=== PATIENT | male | born 1970 | race Two or more races ===

== ENCOUNTER → 2022-06-09 11:00 | Outpatient (BNVA) | payer OTHER, SELFPAY | PROVIDERS: Visit Provider Physician Assistant Medical | DX: S61.042A Puncture wound with foreign body of left thumb without damage to nail, initial encounter (principal); L03.012 Cellulitis of left finger; W45.8XXA Other foreign body or object entering through skin, initial encounter; W22.8XXA Striking against or struck by other objects, initial encounter | CPT/HCPCS: 10060; 73130; 99203 ==

== ENCOUNTER → 2022-06-11 13:06 | Outpatient (BNVA) | payer OTHER, SELFPAY | PROVIDERS: Visit Provider Physician Assistant | DX: L03.012 Cellulitis of left finger (principal) | CPT/HCPCS: 99213 ==

== ENCOUNTER → 2022-06-16 10:33 | Outpatient (BNVA) | payer OTHER, SELFPAY | PROVIDERS: Visit Provider Physician Assistant Medical | DX: L03.012 Cellulitis of left finger (principal) | CPT/HCPCS: 99213 ==

== ENCOUNTER → 2022-11-25 10:02 | Outpatient (BNVA) | payer OTHER, SELFPAY | PROVIDERS: Visit Provider Physician Assistant Medical | DX: S61.214A Laceration without foreign body of right ring finger without damage to nail, initial encounter (principal); W26.9XXA Contact with unspecified sharp object(s), initial encounter | CPT/HCPCS: 99203 ==

== ENCOUNTER 2022-11-27 10:43 | Outpatient (AMB) | payer OTHER, SELFPAY ==
--- NOTE | 2022-11-27 10:51 | A.OFFVIS_ITS ---
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 Patient reports while working with a machine he had a laceration to his 4th finger. He was seen at [facility] where xrays were taken and sutures were applied. Followed up at [facility] who referred patient to orthopedic. He has concerns not being able to fully straiten his finger. He has a pinching sensation in his finger and feels a pressure at the tip of his finger. He has been out of work since injury. 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 He was seen at [facility] where x-rays were performed and sutures were applied. He was also follow-up at [facility] who referred him to our office. He states he has a pinching sensation in his finger and pressure at the tip of his index finger. He also reports he is unable to fully extend his finger. 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 Review of Systems Const All systems reviewed & are unremarkable except as noted in HPI and below Physical Exam Vital Signs: BMI result Body Mass Index 25.0 Const General: cooperative, healthy appearing, comfortable, no acute distress, well developed and alert Orientation/consciousness: patient oriented x3 HEENT Head: Yes normal to inspection, Yes normocephalic and Yes atraumatic Eyes General: appearance normal, both eyes and all related structures Resp Effort & Inspection: normal respiratory effort and able to speak in complete sentences Cardio Rate: regular rate Peripheral pulses: Peripheral pulses 2+ throughout GI Palpation (GI): Soft to palpation Skin Lesions: no lesions Rashes: no rashes Neuro General: patient oriented x3 Extrem Other: Right ring finger: Laceration over the DIP joint with extension lag. He is able to flex at MCP, PIP and DIP joint. Sensation is intact. Assessment & Plan Assessment & Plan (1) Rupture of extensor tendon of finger: Code(s): S56.419A - Strain of extensor muscle, fascia and tendon of finger, unspecified finger at forearm level, initial encounter Plan We discussed options today with him which include surgical vs non-surgical intervention. He is concerned about being out of work as he is the sole provider for his family. I did explain to him that surgical intervention would include exploration with possible extensor tendon repair. This would also require splinting/immobilization for approximately 6 weeks to allow for healing. This would mean he have to be out of work for some time. Non-surgical intervention would also potentially require splinting for at least 6 weeks for him to have some function of the distal phalanx. I did explain to him that with both options, there is risk for stiffness and failure of reattachment of the tendon. He would like to think this through a bit more. He will return on Wednesday to see Dr. Araiza to discuss this further. He was placed in a Stax splint today which allow hyperextension of the DIP joint of the index finger and allows him to flex at the PIP and MCP. He will see back as planned and he will remain out of work until follow-up. Patient Instructions: Scribed for Carol Rojas PA-C, by Vince Dodd medical claims assistant, on 11/27/2022 at 10:45 AM EST. I, Carol Rojas PA-C, have personally reviewed and agree with the information entered by the scribe. Coding Level of Care Code New Pt Level 3 (46232) Diagnoses Rupture of extensor tendon of finger S56.419A
[2022-11-27 11:00] VITALS: BMI 25.0
== END 2022-11-27 11:29 | disposition home or self-care (01) ==
PROVIDERS: Visit Provider Physician Assistant
DX: S61.215A Laceration without foreign body of left ring finger without damage to nail, initial encounter (principal); S56.419A Strain of extensor muscle, fascia and tendon of finger, unspecified finger at forearm level, initial encounter
CPT/HCPCS: 99203

== ENCOUNTER → 2022-11-27 10:43 | Outpatient (BNVA) | payer OTHER, SELFPAY | PROVIDERS: Visit Provider Physician Assistant | DX: S61.214A Laceration without foreign body of right ring finger without damage to nail, initial encounter (principal); S56.415A Strain of extensor muscle, fascia and tendon of right ring finger at forearm level, initial encounter; W31.9XXA Contact with unspecified machinery, initial encounter; Y93.89 Activity, other specified; Y92.69 Other specified industrial and construction area as the place of occurrence of the external cause; Y99.0 Civilian activity done for income or pay | CPT/HCPCS: 99202 ==

== ENCOUNTER 2022-12-01 10:33 | Outpatient (AMB) | payer OTHER, SELFPAY ==
[2022-12-01 11:03] VITALS: BMI 25.0
--- NOTE | 2022-12-01 11:03 | MHC.OFFVIS ---
Intake Vital Signs 12/01/22 11:03 Height 5 ft 6 in Weight 155 lb BMI 25.0 Intake Visit Reasons: eval extensory tendon rupture Rt index finger Intake Note: Jamar 52-year-old right hand dominant male who presents to the office today for further evaluation of laceration of 4th finger s/p injuring his hand while working with a machine, 10/31/22. He was seen at [facility] where x-rays were performed and sutures were applied. He was also follow-up at [facility] who referred him to our office. He states he has a pinching sensation in his finger and pressure at the tip of his index finger. He also reports he is unable to fully extend his finger. Last seen on 11/27/22 with Brigitte Rojas who placed patient in a Stax splint. He has remain out of work. Allergies No Known Allergies Allergy (Verified 11/27/22 11:04) HPI eval extensory tendon rupture Rt index finger HPI Details Jamar is a 52 year old right hand dominant man who presents for a right ring finger laceration. This is a work related injury, DOI: 11/20/22. 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 He has been seen by an outside ED, [facility], and by [facility] on 11/27/22, who placed him in a Stax splint. He says he has not removed his splint since he was given it last week. He says he still has sutures in his finger since his injury, and has been wearing a glove in the shower. 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 Review of Systems Const All systems reviewed & are unremarkable except as noted in HPI and below Physical Exam Vital Signs: BMI result Body Mass Index 25.0 Const General: cooperative, healthy appearing and no acute distress Orientation/consciousness: patient oriented x3 HEENT Head: Yes normocephalic and Yes atraumatic Eyes EOM: EOMs intact bilaterally Resp Effort & Inspection: normal respiratory effort and able to speak in complete sentences Cardio Jugular venous distension: no JVD Skin General skin exam: turgor normal Rashes: no rashes Neuro General: patient oriented x3 Extrem Other: Evaluation of Right Upper Extremity: The patient is alert, oriented, and in no acute distress Neuro: Median, Ulnar, Radial nerves motor and sensory intact and sensation is normal to the tips of all digits Vascular: Cap refill brisk ROM: He can actively flex at the MCP joints, and at the PIP joints as well. He is wearing a Stax splint General: His wound appears to be healing well and sutures were removed today. No Erythema, drainage or evidence of infection. Psych Appearance: grossly normal Affect: normal affect Attitude: cooperative Assessment & Plan Assessment & Plan (1) Extensor tendon laceration of finger with open wound: Code(s): S56.429A - Laceration of extensor muscle, fascia and tendon of unspecified finger at forearm level, initial encounter; S61.209A - Unspecified open wound of unspecified finger without damage to nail, initial encounter Plan Assessment & Plan: 1. Right ring finger extensor tendon laceration at the PIP joint with a mallet finger DOI: 11/20/22 This is a work-related injury I educated him about this condition I discussed operative and non-operative treatment options I think we can continue to manage this non-operatively, and he is in agreement as he cannot take more time off of work I discussed activity modification, he is to lift nothing heavier than 10lbs with his right hand He will wear his finger splint 16/11 for the next 5 weeks, followed by 8 hours of splinting for the 6 weeks after He was fitted for a volar splint to keep the D IP joint in extension that he can alternate with his Stax splint if he likes. His sutures were removed today, and he has no evidence of infection If he develops any symptoms of infection he should contact the clinic or attend the ED He was given a note for work restricting him to a 10lb weight limit with his RUE, and allow to wear his splint at all times, beginning on 12/07/22 He will follow up in 4 weeks Scribed for Pau Araiza MD by Alonso Ruff, medical records receptionist, on 12/01/22 at 11:50 AM, EST. Coding Level of Care Code Est Pt Level 3 (14777) Diagnoses Extensor tendon laceration of finger with open wound S56.429A; S61.209A
== END 2022-12-01 11:54 | disposition home or self-care (01) ==
LOC: HO.HOS 10:33
PROVIDERS: Visit Provider Orthopaedic Surgery
DX: S56.429A Laceration of extensor muscle, fascia and tendon of unspecified finger at forearm level, initial encounter (principal); S61.209A Unspecified open wound of unspecified finger without damage to nail, initial encounter; M20.011 Mallet finger of right finger(s)
CPT/HCPCS: 99213

== ENCOUNTER → 2022-12-01 10:33 | Outpatient (BNVA) | payer OTHER, SELFPAY | PROVIDERS: Visit Provider Orthopaedic Surgery | DX: S56.425A Laceration of extensor muscle, fascia and tendon of right ring finger at forearm level, initial encounter (principal); W31.9XXA Contact with unspecified machinery, initial encounter; Y93.9 Activity, unspecified; Y92.69 Other specified industrial and construction area as the place of occurrence of the external cause; Y99.0 Civilian activity done for income or pay; M20.011 Mallet finger of right finger(s) | CPT/HCPCS: 99212 ==

== ENCOUNTER 2022-12-30 09:50 | Outpatient (AMB) | payer OTHER, SELFPAY ==
--- NOTE | 2022-12-30 09:52 | A.OFFVIS_ITS ---
Intake Vital Signs 12/30/22 09:53 Height 5 ft 6 in Weight 155 lb BMI 25.0 Intake Visit Reasons: OV-Rt Index Finger Intake Note: Jamar 52 yr old right hand dominant male presents today for his work related injury from 11/20/22 for his Right ring finger extensor tendon laceration at the PIP joint with a mallet finger. States he cont's to wear his finger splint since he was last seen. Patient reports he is experiencing a burning sensation from his PIP to DIP. Allergies No Known Allergies Allergy (Verified 12/30/22 10:01) HPI OV-Rt Index Finger HPI Details Jamar is a 52 year old right hand dominant man who returns to discuss his right ring finger extensor tendon laceration & mallet deformity. This is a work related injury, DOI: 11/20/22. 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 He says he has been wearing his volar finger splint as instructed since his last appointment and has not bent his finger. He complains of a burning sensation on his finger that he also finds itchy . 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 Physical Exam Vital Signs: BMI result Body Mass Index 25.0 Const General: cooperative, healthy appearing and no acute distress Orientation/consciousness: patient oriented x3 HEENT Head: Yes normocephalic and Yes atraumatic Eyes EOM: EOMs intact bilaterally Resp Effort & Inspection: normal respiratory effort and able to speak in complete sentences Cardio Jugular venous distension: no JVD Skin General skin exam: turgor normal Rashes: no rashes Neuro General: patient oriented x3 Extrem Other: Evaluation of Right Upper Extremity: The patient is alert, oriented, and in no acute distress Neuro: Median, Ulnar, Radial nerves motor and sensory intact and sensation is normal to the tips of all digits Vascular: Cap refill brisk ROM: He demonstrated good active flexion and extension at the ring finger MCP joint, and at the PIP joint as well, with his DIP joint splinted in extension Mild stiffness in the PIP joint I removed the splint and he was able to hold his DIP joint in extension with ~2 degree extension lag General: Transverse laceration over the dorsal aspect of the DIP joint, well-healed with no evidence of infection Psych Appearance: grossly normal Affect: normal affect Attitude: cooperative Assessment & Plan Assessment & Plan (1) Extensor tendon laceration of finger with open wound: Code(s): S56.429A - Laceration of extensor muscle, fascia and tendon of unspecified finger at forearm level, initial encounter; S61.209A - Unspecified open wound of unspecified finger without damage to nail, initial encounter Plan Assessment & Plan: 1. Right ring finger extensor tendon laceration at the DIP joint with a mallet finger DOI: 11/20/22 This is a work-related injury I educated him about this condition We will continue to manage this non-operatively I discussed activity modification, he is to lift nothing heavier than 10lbs with his right hand He will continue to wear his volar finger splint / until 01/08/23, then transition to 8 hours of splinting for the 6 weeks after He was given a note for work to continue with light duty, with a 10lb weight limit with his RUE, and allow to wear his splint at work. He will follow up in 7 weeks Scribed for Pau Araiza MD by Alonso Ruff, emergency medicine medical director, on 12/30/22 at 10:15 AM, EST. Coding Level of Care Code Est Pt Level 3 (24823) Diagnoses Extensor tendon laceration of finger with open wound S56.429A; S61.209A
[2022-12-30 09:53] VITALS: BMI 25.0
== END 2022-12-30 10:31 | disposition home or self-care (01) ==
PROVIDERS: Visit Provider Orthopaedic Surgery
DX: S56.425A Laceration of extensor muscle, fascia and tendon of right ring finger at forearm level, initial encounter (principal); S61.203A Unspecified open wound of left middle finger without damage to nail, initial encounter; M20.011 Mallet finger of right finger(s)
CPT/HCPCS: 99213

== ENCOUNTER → 2022-12-30 09:50 | Outpatient (BNVA) | payer OTHER, SELFPAY | PROVIDERS: Visit Provider Orthopaedic Surgery | DX: S56.429D Laceration of extensor muscle, fascia and tendon of unspecified finger at forearm level, subsequent encounter (principal); S61.204D Unspecified open wound of right ring finger without damage to nail, subsequent encounter | CPT/HCPCS: 99212 ==

== ENCOUNTER 2023-02-17 08:49 | Outpatient (AMB) | payer OTHER, SELFPAY ==
--- NOTE | 2023-02-17 08:57 | A.OFFVIS_ITS ---
Intake Vital Signs 02/17/23 08:58 Height 5 ft 6 in Weight 155 lb BMI 25.0 Intake Visit Reasons: ov-extensory tendon rupture Rt index finger Intake Note: Jamar 52 yr old right hand dominant male presents today for his work related injury from 11/20/22 for his Right ring finger extensor tendon laceration at the PIP joint with a mallet finger. Patient states he cont's to use his finger splint. States last week he felt a sharp pain from his ring finger to his thumb. Patient also needs updated work note. Allergies No Known Allergies Allergy (Verified 02/17/23 09:06) HPI ov-extensory tendon rupture Rt index finger HPI Details Jamar is a 52 year old right hand dominant man who returns to discuss his right ring finger extensor tendon laceration & mallet deformity. This is a work related injury, DOI: 11/20/22. 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 He says he has been wearing his volar finger splint as instructed since his last appointment and has not bent his finger. He says ~1 week ago he felt a sharp pain from his ring finger to his thumb. He says this felt like a cramp and resolved with time. 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 Review of Systems Const All systems reviewed & are unremarkable except as noted in HPI and below Physical Exam Vital Signs: BMI result Body Mass Index 25.0 Const General: cooperative, healthy appearing and no acute distress Orientation/consciousness: patient oriented x3 HEENT Head: Yes normocephalic and Yes atraumatic Eyes EOM: EOMs intact bilaterally Resp Effort & Inspection: normal respiratory effort and able to speak in complete sentences Cardio Jugular venous distension: no JVD Skin General skin exam: turgor normal Rashes: no rashes Neuro General: patient oriented x3 Extrem Other: Evaluation of Right Upper Extremity: The patient is alert, oriented, and in no acute distress Neuro: Median, Ulnar, Radial nerves motor and sensory intact and sensation is normal to the tips of all digits Vascular: Cap refill brisk ROM: He could make a fist and extend all his digits, including the right ring finger He has a slight residual mallet deformity of ~5-10 degrees at the index finger DIP joint Psych Appearance: grossly normal Affect: normal affect Attitude: cooperative Assessment & Plan Assessment & Plan (1) Extensor tendon laceration of finger with open wound: Code(s): S56.429A - Laceration of extensor muscle, fascia and tendon of unspecified finger at forearm level, initial encounter; S61.209A - Unspecified open wound of unspecified finger without damage to nail, initial encounter Plan Assessment & Plan: 1. Right ring finger extensor tendon laceration at the DIP joint with a mallet finger DOI: 11/20/22 This is a work-related injury I educated him about this condition He has been wearing his finger splint as instructed since 11/27/22, almost 12 weeks to today's date He currently has a slight residual mallet deformity of perhaps 5-10 degrees, which he finds acceptable He may now completely discontinue the splint. He was given a note for work to return to full duty, with restrictions He can follow up prn Scribed for Pau Araiza MD by Alonso Ruff, medical oncology physician, on 02/17/23 at 9:25 AM, EST. Coding Level of Care Code Est Pt Level 3 (94785) Diagnoses Extensor tendon laceration of finger with open wound S56.429A; S61.209A
[2023-02-17 08:58] VITALS: BMI 25.0
== END 2023-02-17 09:38 | disposition home or self-care (01) ==
PROVIDERS: Visit Provider Orthopaedic Surgery
DX: S56.421A Laceration of extensor muscle, fascia and tendon of right index finger at forearm level, initial encounter (principal); S61.200A Unspecified open wound of right index finger without damage to nail, initial encounter; M20.011 Mallet finger of right finger(s)
CPT/HCPCS: 99213

== ENCOUNTER → 2023-02-17 08:49 | Outpatient (BNVA) | payer OTHER, SELFPAY | PROVIDERS: Visit Provider Orthopaedic Surgery | DX: S56.421D Laceration of extensor muscle, fascia and tendon of right index finger at forearm level, subsequent encounter (principal); S61.200D Unspecified open wound of right index finger without damage to nail, subsequent encounter | CPT/HCPCS: 99212 ==

== ENCOUNTER → 2023-06-15 14:04 | Outpatient (BNVA) | payer OTHER, SELFPAY | PROVIDERS: Visit Provider Physician Assistant Medical | DX: S33.6XXA Sprain of sacroiliac joint, initial encounter (principal); S39.012A Strain of muscle, fascia and tendon of lower back, initial encounter; X50.9XXA Other and unspecified overexertion or strenuous movements or postures, initial encounter | CPT/HCPCS: 99203 ==

== ENCOUNTER → 2023-06-21 13:03 | Outpatient (BNVA) | payer OTHER, SELFPAY | PROVIDERS: Visit Provider Physician Assistant Medical | DX: S33.6XXA Sprain of sacroiliac joint, initial encounter (principal); S39.012A Strain of muscle, fascia and tendon of lower back, initial encounter; X50.9XXA Other and unspecified overexertion or strenuous movements or postures, initial encounter | CPT/HCPCS: 99213 ==

== ENCOUNTER 2025-03-06 07:55 | Outpatient (REF) | payer OTHER, SELFPAY ==
--- OUTSIDE RECORDS SUMMARY | 2024-02-11 08:46 | XMS_ITS | Encounter Summary ---
Author Organization [facility] [facility] Address [address] [place] [address] Care Team Providers Care Air Hose Coupler Name Role Phone Fer Edwards MD Primary Care Provider [phone] Encounter Details Date Type Department Care Team (Late st Contact Info) Description 02/11/2024 9:46 AM EDT Hospital Encounter TH HISTORIC ENCOUNTERS [facility] CONVERSION ONLY Fer Edwards MD [address] [place] [address] Social History Tobacco Use Types Packs/Day Years Used Date Smoking Tobacco: Some Days Cigarettes Smokeless Tobacco: Never Alcohol Use Standard Drinks/Week Comments Not Currently 0 (1 standard drink = 0.6 oz pur e alcohol) Housing Instability Answer Date Recorde d Are you worried that in the next 2 months you may not have stable housing? No 01/05/2025 Food Access & Nutrition Answer Date Rec orded Do you have access to a vari ety of food including fruits and vegetables? No 01/05/2025 Access to Healthcare Answer Date Record ed Within the last 3 months, ho w many times did you visit the emergency department for your medical care? 0 01/05/2025 Financial Risk Answer Date Recorded How hard is it for you to pa y for the very basics like food, housing, medical care, and air conditioning / heating? Not very hard 01/05/2025 Transportation Answer Date Recorded Has the lack of transportati on kept you from meetings, work, or from getting things needed for daily living? No Has the lack of transportati on kept you from medical appointments or from getting medications? No 01/05/2025 Social Isolation Answer Date Recorded How often do you feel lonely or isolated from th ose around you? Never 01/05/2025 Food Risk Answer Date Recorded Within the past 12 months we worried whether our food would run out before we got money to buy more. Never true 01/05/2025 Within the past 12 months th e food we bought just didn't last and we didn't have money to get more. Never true 01/05/2025 Living Situation Answer Date Recorded What is your living situation? Unrecognized valu e 01/05/2025 Sex and Gender Information Value Date Recorded Sex Assigned at Not on file Legal Sex Male 11:13 PM EST Gender Identity Not on file Sexual Orientation Not on file documented as of this encounter Plan of Treatment Upcoming Encounters Date Type Department Care Team (Late st Contact Info) Description 06/07/2025 9:15 AM EST Office Visit Adult Medicine [address] [phone] Fer Edwards MD [address] [place] [address] documented as of this encounter Visit Diagnoses Not on filedocumented in this encounter Care Teams Air Hose Coupler Relationship Specialty Start Date End Date Fer Edwards MD [address] [place] [address] PCP - General 05/19/22 documented as of this encounter
--- NOTE | 2025-03-06 | EMG_ITS ---
Chief complaint: Right upper extremity numbness Reason for referral: R20.0 Anesthesia of skin - Right upper extremity Referred by: Rommel Edwards MD Procedure done: Right upper extremity NCS/ EMG Right median and ulnar motor studies were performed. Right median and ulnar mixed sensory studies were performed. Right median and lateral antecubital brachial sensory studies and radial sensory study was performed. EMG was performed. Findings: Median motor distal latencies was slightly prolonged. Median mixed distal latencies was moderately prolonged with slow conduction velocity. Impression: [id number] right median neuropathy across carpal tunnel [place] [id number] [facility]
--- OUTSIDE RECORDS SUMMARY | 2025-03-06 07:59 | XMS_ITS | Clinical Summary ---
Author Organization [facility] Address [address] [place] [address] Phone Care Team Providers Care Rf Design Engineer Name Role Phone Fer Edwards MD Primary Care Provider Allergies No known active allergies Medications acetaminophen (TYLENOL 8 HOUR) 650 mg 8 hr tablet Take 1 Tablet by mouth 3 times daily as needed for Pain. 4 Active valACYclovir (VALTREX) 500 mg tablet Take 1 tablet (500 mg total) by mouth 2 (two) times a day. 180 tablet 1 4 Active sildenafiL (VIAGRA) 50 mg tablet Take 1 tablet (50 mg total) by mouth 1 (one) time each day if needed for erectile dysfunction. 12 tablet 3 5 026 Active cholecalcifero l (VITAMIN D-3) 50 mcg (2,000 unit) tablet Take 1 tablet (2,000 Units total) by mouth 1 (one) time each day. 90 tablet 1 5 Active amLODIPine (NORVASC) 5 mg tablet Take 1 tablet (5 mg total) by mouth 1 (one) time each day. 90 each 1 5 Active hydrOXYzine HCL (ATARAX) 10 mg tablet Take 1-2 tablets (10-20 mg total) by mouth at bedtime as needed for anxiety (insomnia). 60 tablet 1 5 Active metFORMIN (GLUCOPHAGE) 500 mg tablet TAKE 1 TABLET BY MOUTH 1 TIME EACH DAY WITH BREAKFAST. 90 tablet 1 5 Active metFORMIN (GLUCOPHAGE) 500 mg tablet TAKE 1 TABLET BY MOUTH 1 TIME EACH DAY WITH BREAKFAST. 90 tablet 1 5 025 Discontinued Active Problems Problem Noted Date Diagnosed Date Prediabetes 08/01/2024 Mixed hyperlipidemia 08/01/2024 Vitamin D deficiency disease 08/01/2024 Neck pain on right side 03/01/2024 Primary hypertension 02/01/2024 Anxiety 01/29/2017 Depression 01/29/2017 Panic attacks 06/26/2014 Recurrent genital HSV (herpes simplex virus) inf ection 01/27/2013 Overview (02/10/2024): Last Assessment & Plan: Viral culture positive Dec 2012 and serology also positive Epididymitis 07/25/2012 Insomnia 02/04/2012 Encounters Date Type Department Care Team Description 01/05/2025 2:00 PM EDT Office Visit Adult Medicine [address] [phone] Fer Edwards MD Physical exam (Primary Dx); Primary hypertension; Mixed hyperlipidemia; Prediabetes; Urinary frequency; Right upper extremity numbness; Anxiety disorder, unspecified type; Need for tetanus, diphtheria, and acellular pertussis (Tdap) vaccine; Screening for prostate cancer from Last 3 Months Immunizations Immunization Administration Dates Next Due Influenza trivalent, 0.5mL, preservative free (Fluarix; FluLaval; Fluzone) ages 6mo and older (Afluria) 3 years and older 03/05/2021,02/08/2020 Influenza, Unspecified 04/16/2021 Concentra SARS-CoV-2 COVID-19, mRNA, LNP-S, preservative free 04/26/2021 Tdap Tetanus diptheria acell ular pertussis (Boostrix; Adacel) 7yo and older 01/05/2025,08/02/2013 Surgical History Surgery Date Site/Laterality Comments WISDOM TOOTH EXTRACTION PROCEDURE: HISTORICAL WISDOM TEETH EXTRACTION Medical History Medical History Date Comments Tobacco abuse 03/28/2013 DX:Tobacco abuse Hypertension Prediabetes Recurrent genital herpes Family History Medical History Relation Name Comments No Known Problems Brother 1 No Known Problems Daughter Prostate cancer Father s/p prostate ctomy Hypertension Maternal Grandfather CAD, fe w DE Hypertension Maternal Grandmother DM, art hritis Depression Mother DM, arthritis Prostate cancer Other uncle No Known Problems Paternal Grandfather di ed 102 No Known Problems Paternal Grandmother di ed 101 No Known Problems Sister No Known Problems Son x4 healthy sons Relation Name Status Comments Brother 1 Alive Brother 2 Alive Daughter Alive Father Alive Maternal Grandfather Maternal Grandmother Mother Alive Other uncle Paternal Grandfather Paternal Grandmother Sister Alive Son Alive Social History Tobacco Use Types Packs/Day Years Used Date Smoking Tobacco: Some Days Cigarettes Smokeless Tobacco: Never Tobacco Cessation:Counseling Given: Not Answered Alcohol Use Standard Drinks/Week Comments Not Currently [...] on file Sexual Orientation Not on file Obstetrics History Last Filed Vital Signs Vital Sign Reading Time Taken Comments Blood Pressure 116/67 01/05/2025 1:52 PM EDT Pulse 91 01/05/2025 1:52 PM EDT Temperature 36.1 C (96.9 F) 01/05/2025 1:52 PM EDT Respiratory Rate 16 08/01/2024 8:24 AM EDT Oxygen Saturation 97% 08/01/2024 8:24 AM EDT Inhaled Oxygen Concentration - - Weight 70.8 kg (156 lb) 01/05/2025 1:52 PM EDT Height 167.6 cm (5' 6 ) 01/05/2025 1:52 PM EDT Body Mass Index 25.18 01/05/2025 1:52 PM EDT Plan of Treatment Upcoming Encounters Date Type Department Care Team (Late st Contact Info) Description 06/07/2025 9:15 AM EST Office Visit Adult Medicine [address] [phone] Fer Edwards MD [address] [place] [address] Health Maintenance Due Date Last Done Comments Pneumococcal Vaccine: 50+ Years (1 of 2 - PCV) 1989 Zoster Vaccines (1 of 2) 1989 Hepatitis B Vaccines (2 of 3 - 19+ 3-dose series) 01/06/2022 12/09/2021 COVID-19 Vaccine ( season) 2024 11/28/2021, 04/26/2021, 08/24/2020, Additional history exists Influenza Vaccine (#1) 2024 , 03/05/2021, 02/08/2020 Social Influencers of Health Screening 01/05/2026 01/05/2025 Hypertension/CHF/CAD Annual BMP Blood Test 01/17/2026 01/17/2025, 09/08/2024, 09/30/2023, Additional history exists Cholesterol Screening (Lipid Panel) 01/17/2030 01/17/2025, 09/08/2024, 09/30/2023, Additional history exists Colorectal Cancer Screening: Colonoscopy 09/16/2031 09/15/2021 DTaP,Tdap,and Td Vaccines (3 - Td or Tdap) 01/05/2035 01/05/2025, 08/02/2013 RSV Immunization Adult Patients (1 - 1-dose 75+ series) 2045 HIV Screening Completed 02/04/2012 Hepatitis C Screening Completed 02/04/2012 Depression Screening Completed 01/05/2025 HIB Vaccines Aged Out No longer eligi ble based on patient's age to complete this topic HPV Vaccines Aged Out No longer eligi ble based on patient's age to complete this topic Hepatitis A Vaccines Aged Out No long er eligible based on patient's age to complete this topic IPV Vaccines Aged Out No longer eligi ble based on patient's age to complete this topic MMR Vaccines Aged Out No longer eligi ble based on patient's age to complete this topic Meningococcal ACWY Vaccine Aged Out N o longer eligible based on patient's age to complete this topic Meningococcal B Vaccine Aged Out No l onger eligible based on patient's age to complete this topic RSV Immunization Patients Under 20 months Aged Out No longer eligible based on patient's age to complete this topic Varicella Vaccines Aged Out No longer eligible based on patient's age to complete this topic Procedures Procedure Name Priority Date/Time Associated Diagnosis Comments XAVIER URINE CULTURE TUBE Routine 01/17/2025 9:21 AM EDT Urinary frequency URINALYSIS WITH REFLEX MICROSCOPIC AND CULTURE Routine 01/17/2025 9:21 AM EDT Urinary frequency PROSTATE SPECIFIC ANTIGEN SCREEN Routine 01/17/2025 9:21 AM EDT Screening for prostate cancer VITAMIN B12 Routine 01/17/2025 9:21 AM EDT Physical exam Primary hypertension Mixed hyperlipidemia Prediabetes Urinary frequency Right upper extremity numbness Anxiety disorder, unspecified type Screening for prostate cancer MAGNESIUM Routine 01/17/2025 9:21 AM EDT Physical exam Primary hypertension Mixed hyperlipidemia Prediabetes Urinary frequency Right upper extremity numbness Anxiety disorder, unspecified type Screening for prostate cancer HEMOGLOBIN A1C Routine 01/17/2025 9:21 AM EDT Physical exam Primary hypertension Mixed hyperlipidemia Prediabetes Urinary frequency Right upper extremity numbness Anxiety disorder, unspecified type Screening for prostate cancer LIPID PANEL WITH REFLEX TO DIRECT LDL Routine 01/17/2025 9:21 AM EDT Physical exam Primary hypertension Mixed hyperlipidemia Prediabetes Urinary frequency Right upper extremity numbness Anxiety disorder, unspecified type Screening for prostate cancer URINALYSIS WITH REFLEX MICROSCOPIC AND CULTURE Routine 01/17/2025 9:21 AM EDT Urinary frequency COMPREHENSIVE METABOLIC PANEL Routine 01/17/2025 9:21 AM EDT Physical exam Primary hypertension Mixed hyperlipidemia Prediabetes Urinary frequency Right upper extremity numbness Anxiety disorder, unspecified type Screening for prostate cancer CULTURE URINE Routine 01/17/2025 9:21 AM EDT Urinary frequency COLONOSCOPY Routine 09/15/2021 HEPATITIS C SCREENING Routine 02/04/2012 HIV SCREENING Routine 02/04/2012 from Last 3 Months or Most Recently Relevant to Health Maintenance Results * Prostate specific antigen screen (01/17/2025 9:21 AM EDT) PSA 1.03 0.00 - 4.00 ng/mL LAB CHEMISTRY METHOD 01/17/2025 4:10 PM EDT [facility] Blood Venous blood specimen / Unknown Venipuncture / Unknown 01/17/2025 9:21 AM EDT 01/17/2025 9:21 AM EDT Narrative [facility] - 01/17/2025 4:10 PM EDT The Siemens Advia Centaur Chemiluminescent Immunoassay is used. Results obtained with different assay methods or kits cannot be used interchangeably. Results cannot be interpreted as absolute evidence of the presence or absence of malignant disease. us Fer Edwards MD LAB BLOOD ORDERABLES Final Result [facility] [address] [place] [address], [place] [phone] * (ABNORMAL) Urinalysis with reflex microscopic and culture (01/17/2025 9:21 AM EDT) Specific [place] Urine 1.019 1.003 - 1.030 LAB URINALYSIS - AUTOMATED METHOD 01/17/2025 12:06 PM [facility] pH, Urine 7.0 5.0 - 8.0 pH LAB URINALYSIS - AUTOMATED METHOD 01/17/2025 12:06 PM [facility] Leukocytes, Urine Trace(A) Negative LAB URINALYSIS - AUTOMATED METHOD 01/17/2025 12:06 PM [facility] Nitrite, Urine Negative Negative LAB URINALYSIS - AUTOMATED METHOD 01/17/2025 12:06 PM [facility] Protein, Urine Negative <=Trace mg/dL LAB URINALYSIS - AUTOMATED METHOD 01/17/2025 12:06 PM [facility] Glucose, Urine Negative Negative mg/dL LAB URINALYSIS - AUTOMATED METHOD 01/17/2025 12:06 PM [facility] Ketones, Urine Negative Negative mg/dL LAB URINALYSIS - AUTOMATED METHOD 01/17/2025 12:06 PM [facility] Urobilinogen, Urine 0.2 0.2 - 1.0 mg/dL LAB URINALYSIS - AUTOMATED METHOD 01/17/2025 12:06 PM [facility] Bilirubin, Urine Negative Negative LAB URINALYSIS - AUTOMATED METHOD 01/17/2025 12:06 PM [facility] Blood, Urine Negative Negative LAB URINALYSIS - AUTOMATED METHOD 01/17/2025 12:06 PM [facility] RBC, Urine 1.9 0 - 4 /HPF LAB URINALYSIS - AUTOMATED METHOD 01/17/2025 12:06 PM EDT [facility] WBC, Urine 0.4 0 - 4 /HPF LAB URINALYSIS - AUTOMATED METHOD 01/17/2025 12:06 PM EDT [facility] Squamous Epithelial, Urine 11 0 - 60 /LPF LAB URINALYSIS - AUTOMATED METHOD 01/17/2025 12:06 PM [facility] Bacteria, Urine Negative Negative /HPF LAB URINALYSIS - AUTOMATED METHOD 01/17/2025 12:06 PM T [facility] Hyaline Casts, Urine 1.6 0 - 3 /LPF LAB URINALYSIS - AUTOMATED METHOD 01/17/2025 12:06 PM T [facility] Urine Urine specimen obtained by clean catch procedure / Unknown Non-blood Collection / Unknown 01/17/2025 9:21 AM EDT 01/17/2025 9:21 AM EDT Fer Edwards MD LAB URINE ORDERABLES Final Result Performing Organization Address City/[facility]/ZIP Co de Phone Number [facility] [address] [place] [address], [place] [phone] * Xavier urine culture tube (01/17/2025 9:21 AM EDT) Extra Tube Hold for add-ons. 01/17/2025 12:01 PM EDT [facility] Comment:Auto resulted. Urine Urine specimen obtained by clean catch procedure / Unknown Non-blood Collection / Unknown 01/17/2025 9:21 AM EDT 01/17/2025 9:21 AM EDT Fer Edwards MD LAB URINE ORDERABLES Final Result Performing Organization Address [facility]/ZIP Co de Phone Number [facility] [address] [place] [address], [place] [phone] * (ABNORMAL) Lipid panel with reflex to direct LDL (01/17/2025 9:21 AM EDT) Cholesterol 167 0 - 200 mg/dL LAB CHEMISTRY METHOD 01/17/2025 2:57 PM EDT [facility] Triglycerides 105 0 - 150 mg/dL LAB CHEMISTRY METHOD 01/17/2025 2:57 PM EDT [facility] HDL 41 >=40 mg/dL LAB CHEMISTRY METHOD 01/17/2025 2:57 PM EDT [facility] LDL Calculated 105(H) 0 - 100 mg/dL LAB CHEMISTRY METHOD 01/17/2025 2:57 PM EDT [facility] Comment:Estimated LDL Calcul ated using equation: Total cholesterol - HDL cholesterol - (Triglycerides/5) VLDL Cholesterol Carloz 21 mg/dL LAB CHEMISTRY METHOD 01/17/2025 2:57 PM EDT [facility] Non HDL Chol. (LDL+VLDL) 126 <145 mg/dL LAB CHEMISTRY METHOD 01/17/2025 2:57 PM EDT [facility] Chol/HDL Ratio 4.1 0.0 - 4.4 LAB CHEMISTRY METHOD 01/17/2025 2:57 PM EDT [facility] Blood Venous blood specimen / Unknown Venipuncture / Unknown 01/17/2025 9:21 AM EDT 01/17/2025 9:21 AM EDT us Fer Edwards MD LAB BLOOD ORDERABLES Final Result [facility] [address] [place] [address], * Culture urine (01/17/2025 9:21 AM EDT) Culture, Urine No growth 01/18/2025 7:57 AM EDT [facility] Urine Urine specimen obtained by clean catch procedure / Unknown Non-blood Collection / Unknown 01/17/2025 9:21 AM EDT 01/17/2025 12:05 PM EDT Fer Edwards MD LAB MICROBIOLOGY - GENERAL ORDERABLES Final Result [facility] [address] [place] [address], [place] [phone] * Magnesium (01/17/2025 9:21 AM EDT) [facility] Magnesium 2.1 1.9 - 2.6 mg/dL LAB CHEMISTRY METHOD 01/17/2025 2:01 PM EDT [facility] Blood Venous blood specimen / Unknown Venipuncture / Unknown 01/17/2025 9:21 AM EDT 01/17/2025 9:21 AM EDT Fer Edwards MD LAB BLOOD ORDERABLES Final Result Performing Organization Address City/[facility]/ZIP Co de Phone Number [facility] [address] [place] [address], [place] [phone] * Hemoglobin A1c (01/17/2025 9:21 AM EDT) [facility] Hemoglobin A1C 6.0 <6.5 % LAB CHEMISTRY METHOD 01/17/2025 1:15 PM EDT [facility] Mean Bld Glu Estim. 126 mg/dL LAB CHEMISTRY METHOD 01/17/2025 1:15 PM EDT [facility] Blood Venous blood specimen / Unknown Venipuncture / Unknown 01/17/2025 9:21 AM EDT 01/17/2025 9:21 AM EDT Fer Edwards MD LAB BLOOD ORDERABLES Final Result Performing Organization Address City/[facility]/ZIP Co de Phone Number [facility] [address] [place] [address], [place] [phone] * Vitamin B12 (01/17/2025 9:21 AM EDT) Pathologist [facility] Vitamin B-12 506 250 - 900 pcg/mL LAB CHEMISTRY METHOD 01/17/2025 2:57 PM [facility] Blood Venous blood specimen / Unknown Venipuncture / Unknown 01/17/2025 9:21 AM EDT 01/17/2025 9:21 AM EDT us Fer Edwards MD LAB BLOOD ORDERABLES Final Result [facility] [address] [place] [address], [place] [phone] * (ABNORMAL) Comprehensive metabolic panel (01/17/2025 9:21 AM EDT) [facility] Sodium 139 133 - 145 mmol/L LAB CHEMISTRY METHOD 01/17/2025 2:57 PM [facility] Potassium 4.1 3.5 - 5.5 mmol/L LAB CHEMISTRY METHOD 01/17/2025 2:57 PM [facility] Chloride 106 96 - 110 mmol/L LAB CHEMISTRY METHOD 01/17/2025 2:57 PM [facility] CO2 25 21 - 32 mmol/L LAB CHEMISTRY METHOD 01/17/2025 2:57 PM [facility] Anion Gap 8 3 - 11 LAB CHEMISTRY METHOD 01/17/2025 2:57 PM [facility] Glucose 115(H) 70 - 100 mg/dL LAB CHEMISTRY METHOD 01/17/2025 2:57 PM [facility] BUN 17 5 - 25 mg/dL LAB CHEMISTRY METHOD 01/17/2025 2:57 PM [facility] Creatinine 0.84 0.70 - 1.30 mg/dL LAB CHEMISTRY METHOD 01/17/2025 2:57 PM [facility] eGFR 104 >=60 mL/min/1. 73m2 LAB CHEMISTRY METHOD 01/17/2025 2:57 PM EDT [facility] Comment:Calculation based on the Chronic Kidney Disease Epidemiology Collaboration (CKD-EPI) equation refit without adjustment for race. BUN/Creatinine Ratio 20.2 LAB CHEMISTRY METHOD 01/17/2025 2:57 PM EDT [facility] Calcium 9.1 8.5 - 10.5 mg/dL LAB CHEMISTRY METHOD 01/17/2025 2:57 PM EDT [facility] AST (SGOT) 18 10 - 42 unit/L LAB CHEMISTRY METHOD 01/17/2025 2:57 PM [facility] ALT (SGPT) 27 10 - 60 unit/L LAB CHEMISTRY METHOD 01/17/2025 2:57 PM [facility] Alkaline Phosphatase 58 42 - 121 unit/L LAB CHEMISTRY METHOD 01/17/2025 2:57 PM T [facility] Total Protein 6.8 6.0 - 8.0 g/dL LAB CHEMISTRY METHOD 01/17/2025 2:57 PM [facility] Albumin 4.0 3.2 - 5.0 g/dL LAB CHEMISTRY METHOD 01/17/2025 2:57 PM [facility] Total Bilirubin 0.9 0.0 - 1.4 mg/dL LAB CHEMISTRY METHOD 01/17/2025 2:57 PM T [facility] Blood Venous blood specimen / Unknown Venipuncture / Unknown 01/17/2025 9:21 AM EDT 01/17/2025 9:21 AM EDT us Fer Edwards MD LAB BLOOD ORDERABLES Final Result [facility] [address] [place] [address], * Hm Colonoscopy (09/15/2021) Colonoscopy Abstracted, No interpretation Anatomical Region Laterality Modality Other Historical Provider HEALTH MAINTENANCE Final Result * HIV Screening (02/04/2012) Pathologist [facility] HIV Screening Abstracted Historical Provider HEALTH MAINTENANCE Final Result * Hepatitis C Screening (02/04/2012) Pathologist [facility] Hepatitis C Screening Abstracted Historical Provider HEALTH MAINTENANCE Final Result from Last 3 Months or Most Recently Relevant to Health Maintenance Insurance [facility] Care Teams Rf Design Engineer Relationship Specialty Start Date End Date Fer Edwards MD [address] [place] [phone] PCP - General 05/19/22
== END 2025-03-06 07:56 | disposition home or self-care (01) ==
LOC: HO.NEURO 07:55
PROVIDERS: Visit Provider Internal Medicine
DX: R20.0 Anesthesia of skin (principal)
CPT/HCPCS: 95886; 95910

== ENCOUNTER → 2025-03-06 08:00 | Outpatient (BNV) | payer OTHER, SELFPAY | PROVIDERS: Visit Provider Psychiatry & Neurology Neurology | DX: G56.01 Carpal tunnel syndrome, right upper limb (principal) | CPT/HCPCS: 95886; 95910 ==